=== PATIENT | male | born 1935 | race Hispanic/Latino ===

== ENCOUNTER 2019-03-29 06:33 | Day surgery (SDC) | payer OTHER, MEDICARE ==
[2019-03-27 15:44] VITALS: BP 174/78
[2019-03-27 15:59] LABS: BASOPHILS % (AUTO) 0.8 % (0.0-5.0); EOSINOPHILS % (AUTO) 2.2 % (0.0-8.0); HEMATOCRIT 39.9 % (42-54); LYMPHOCYTES % (AUTO) 31.7 % (21.0-51.0); MEAN CORPUSCULAR HEMOGLOBIN 31.1 pg (27.0-33.0); MEAN CORPUSCULAR HGB CONC 34.1 g/dL (32.0-36.0); MEAN CORPUSCULAR VOLUME 91.4 fL (79-99); MONOCYTES % (AUTO) 9.4 % (3.0-13.0); NEUTROPHILS % (AUTO) 55.9 % (40.0-77.0); PLATELET COUNT (AUTO) 178 K/uL (130-400); RED BLOOD CELL COUNT(AUTO) 4.37 MIL/uL (4.50-6.20); RED CELL DISTRIBUTION WIDTH 14.2 % (11.0-15.5); WHITE BLOOD COUNT (AUTO) 5.8 K/uL (4.8-10.8)
[2019-03-27 16:07] LABS: CREATININE 0.8 mg/dL (0.5-1.5); POTASSIUM 4.1 mmol/L (3.5-5.1)
[2019-03-29] VITALS (17 sets, daily range): BP systolic 140–162; BP diastolic 64–76
[~2019-03-29] VITALS: Ht 175.3 cm; Wt 78.3 kg
[~2019-03-29 06:33] MED LIST: AMLO5TAB9 PO; MIRA25TA PO; MUPI22O TP; TAMS-1 PO
[2019-03-29] MEDS: CEFAZOLIN SODIUM 1 GM VIAL IVP SCH ×2 (07:30→09:29)
[2019-03-29] MEDS ORDERED: SIMV80TA91 PO (08:00)
[2019-03-29] MEDS ORDERED: LACTATED RINGERS 1000ML 1,000 ML IV ONE (08:01)
[2019-03-29] MEDS ORDERED: LIDOCAINE HCL 1% 20 ML VIAL ONE (09:26)
[2019-03-29] MEDS ORDERED: BUPIVACAINE/PF 0.5% 30ML VIAL ONE (09:26)
[2019-03-29] MEDS ORDERED: PROPOFOL 10 MG/ML 20ML VIAL IV ONE ×2 (09:29)
[2019-03-29] MEDS ORDERED: FENTANYL CITRATE PF 50 MCG/1 ML 2ML VIAL ONE (09:29)
[2019-03-29] MEDS ORDERED: LIDOCAINE PF 2% 5ML ABBOJECT ONE (09:29)
[2019-03-29] MEDS ORDERED: MIDAZOLAM HCL 1 MG/ML 2ML VIAL ONE (09:35)
[2019-03-29] MEDS ORDERED: OCTYL 2-CYANOACRYLATE 1 EACH TP ONE (09:52)
--- NOTE | 2019-03-29 11:07 | NUR ---
ASSESSMENT RECEIVED PT FROM PACU STAFF JULISA RN. PT [id number]. INCISION TO LEFT UPPER THIGH. CLEAN AND DRY. SOFT TO TOUCH. NO BLEEDING, OOZING NOTED TO SITE. AT BEDSIDE. DENIES ANY PAIN.
--- NOTE | 2019-03-29 11:40 | NUR ---
DISCHARGE ORAL AND WRITTEN DISCHARGE INSTRUCTIONS GIVEN TO PT AND PTS ALONG WITH PRESCRIPTIONS. NO BLEEDING NOTED TO SITE. NO OTHER QUESTIONS AT THIS TIME.
== END 2019-03-29 11:47 | disposition home or self-care (01) ==
LOC: DAH 06:33
PROVIDERS: ATTEND Urology
DX: L72.8 Other follicular cysts of the skin and subcutaneous tissue (principal); Z98.890 Other specified postprocedural states; Z79.899 Other long term (current) drug therapy; I10 Essential (primary) hypertension; M19.90 Unspecified osteoarthritis, unspecified site; N50.89 Other specified disorders of the male genital organs
CPT/HCPCS: 11402; 36415; 80048; 85025; 88307; 93005; A4218; A4510; A4600; A4606; J0690; J2001; J2250; J2704; J3010; J3490; J7120